=== PATIENT | female | born 1960 | race Caucasian/White ===

== ENCOUNTER 2020-12-08 13:31 | Emergency (ER) | payer OTHER ==
[~2020-12-08 13:31] MED LIST: FLEXERIL 10 MG10 MG PO; KEFLEX500 MG PO; LISINOPRIL20 MG PO; MEDROL4 MG PO; PERCOCET 5-3251 EACH PO; TRAZODONE HCL100 MG PO; VENLAFAXINE HC150 M1 PO
[2020-12-08 15:07] LABS: HEMOGLOBIN 12.4 gm/dl (12.3-15.3); RED BLOOD COUNT 3.96 M/UL (4.00-5.10); WHITE BLOOD COUNT 12.9 K/UL (4.5-11.0)
[2020-12-08 15:45] LABS: BUN/CREATININE RATIO 17 (0-10)
[2020-12-08] MEDS ORDERED: TORADOL 10 MG T10 MG PO (17:42)
[2020-12-08] MEDS ORDERED: FLOMAX0.4 MG PO (17:42)
[2020-12-08] MEDS ORDERED: ZOFRAN4 MG PO (17:42)
== END 2020-12-08 17:58 | disposition home or self-care (01) ==
LOC: ER1 13:31
PROVIDERS: Physician Assistant
DX: N13.2 Hydronephrosis with renal and ureteral calculous obstruction (principal); I10 Essential (primary) hypertension; Z90.89 Acquired absence of other organs; Z88.0 Allergy status to penicillin; Z79.899 Other long term (current) drug therapy
CPT/HCPCS: 71045; 80053; 81001; 82150; 82550; 82553; 83690; 83874; 84484; 85025; 93005; 96374; 96375; 99284; J1885; J2270; J2405; Q9967

== ENCOUNTER → 2020-12-17 | Outpatient (CLI) | payer OTHER ==
[~2020-12-17] MED LIST changes: +FLOMAX0.4 MG PO; +TORADOL 10 MG T10 MG PO; +ZOFRAN4 MG PO
== END ==
LOC: EXRD 13:10
DX: N20.1 Calculus of ureter (principal)
CPT/HCPCS: 74018

== ENCOUNTER → 2021-03-06 | Outpatient (CLI) | payer OTHER ==
[~2021-03-06] MED LIST changes: +ASPIRIN EC81 MG PO; +ATORVASTATIN CA40 MG PO; +AZITHROMYCIN250 MG PO; +CLOPIDOGREL75 MG PO; +FEXOFENADINE-P1 EACH PO; +FLONASE ALLER15.8 ML; +HYDROCODON-ACE1 EAC6 PO; +HYDROXYZINE HCL25 MG PO; +LOSARTAN POTASS50 MG PO; +TOPIRAMATE50 MG PO; +VENLAFAXINE HC225 MG PO
== END ==
LOC: US 13:25
DX: M71.21 Synovial cyst of popliteal space [Baker], right knee (principal)
CPT/HCPCS: 76882

== ENCOUNTER 2021-04-22 14:01 | Inpatient (IN) | payer OTHER ==
[~2021-04-22] VITALS: Ht 160 cm; Wt 51.9 kg
[~2021-04-22 14:01] MED LIST changes: -ASPIRIN EC81 MG PO; -ATORVASTATIN CA40 MG PO; -AZITHROMYCIN250 MG PO; -CLOPIDOGREL75 MG PO; -FEXOFENADINE-P1 EACH PO; -FLONASE ALLER15.8 ML; -HYDROCODON-ACE1 EAC6 PO; -HYDROXYZINE HCL25 MG PO; -LOSARTAN POTASS50 MG PO; -TOPIRAMATE50 MG PO; -VENLAFAXINE HC225 MG PO
[2021-04-22 15:31] LABS: HEMOGLOBIN 12.1 gm/dl (12.3-15.3); RED BLOOD COUNT 3.83 M/UL (4.00-5.10); WHITE BLOOD COUNT 6.5 K/UL (4.5-11.0)
[2021-04-22 15:51] LABS: BUN/CREATININE RATIO 21 (0-10)
[2021-04-22] MEDS ORDERED: FEXOFENADINE-P1 EACH PO (18:51)
[2021-04-22] MEDS ORDERED: AZITHROMYCIN250 MG PO (18:51)
[2021-04-22] MEDS ORDERED: VENLAFAXINE HC225 MG PO (18:52)
[2021-04-22] MEDS ORDERED: FLONASE ALLER15.8 ML (18:52)
[2021-04-22] MEDS ORDERED: HYDROCODON-ACE1 EAC6 PO (18:54)
[2021-04-22] MEDS ORDERED: LOSARTAN POTASS50 MG PO (18:54)
[2021-04-22] MEDS ORDERED: ATORVASTATIN CA40 MG PO (18:54)
[2021-04-22] MEDS ORDERED: TOPIRAMATE50 MG PO (18:55)
[2021-04-22] MEDS ORDERED: TRAZODONE HCL100 MG PO (18:55)
[2021-04-22] MEDS ORDERED: HYDROXYZINE HCL25 MG PO (18:56)
[2021-04-24 04:33] LABS: HEMOGLOBIN 11.7 gm/dl (12.3-15.3); RED BLOOD COUNT 3.71 M/UL (4.00-5.10); WHITE BLOOD COUNT 6.7 K/UL (4.5-11.0)
[2021-04-24 04:54] LABS: BUN/CREATININE RATIO 24 (0-10)
[2021-04-25 07:51] LABS: BUN/CREATININE RATIO 22 (0-10)
[2021-04-25] MEDS ORDERED: ASPIRIN EC81 MG PO (10:39)
[2021-04-25] MEDS ORDERED: CLOPIDOGREL75 MG PO (10:39)
== END 2021-04-25 15:10 | disposition home or self-care (01) | DRG 65 ==
LOC: ER1 14:01 → CDU 16:40 → M/S 16:40
PROVIDERS: Internal Medicine; Physician Assistant Medical; ADMIT Internal Medicine
PROC: B24BZZ4 Ultrasonography of Heart with Aorta, Transesophageal (ICD-10-PCS; principal; 2021-04-22)
DX: I63.39 Cerebral infarction due to thrombosis of other cerebral artery (principal); G93.49 Other encephalopathy; Q21.1 Atrial septal defect; Z20.822 Contact with and (suspected) exposure to COVID-19; I08.0 Rheumatic disorders of both mitral and aortic valves; G43.909 Migraine, unspecified, not intractable, without status migrainosus; F41.9 Anxiety disorder, unspecified; I10 Essential (primary) hypertension; G89.29 Other chronic pain; Z79.82 Long term (current) use of aspirin; Z88.0 Allergy status to penicillin
CPT/HCPCS: ECHO; 36415; 70450; 70496; 70498; 70551; 71045; 80053; 80061; 80307; 81001; 82550; 82553; 82962; 83036; 83735; 83874; 84439; 84443; 84484; 85025; 85027; 93270; 93306; 93312; 93320; 96372; 96374; 96375; 99285; G0378; G0480; J0780; J1200; J1650; J1885; J2250; J2310; J3010; Q9967; U0002